=== PATIENT | male | born 1960 | race Caucasian/White ===

== ENCOUNTER → 2017-09-20 | Outpatient (CLI) | payer BC ==
[~2017-09-20] MED LIST: BENICAR 20MG TA20 MG PO; INDOCIN50 MG PO; ZYLOPRIM 300MG300 MG PO
== END ==
LOC: COL.RAD 06:34
DX: N20.0 Calculus of kidney (principal); K76.0 Fatty (change of) liver, not elsewhere classified
CPT/HCPCS: Q9967

== ENCOUNTER → 2017-11-22 | Outpatient (CLI) | payer BC | LOC: COL.RAD 08:17 | DX: C61 Malignant neoplasm of prostate (principal) | CPT/HCPCS: A9503 ==

== ENCOUNTER 2017-12-21 11:50 | Inpatient (IN) | payer BC, OTHER ==
[~2017-12-21] VITALS: Ht 177.8 cm; Wt 136.3 kg
[2017-12-28] VITALS (14 sets, daily range): BP systolic 91–153; BP diastolic 44–97; PULSE 71–90; TEMP 97.3–98.4
[2017-12-28 14:17] LABS: HEMATOCRIT 38.7 % (42.0-52.0); HEMOGLOBIN 12.4 g/dl (13.5-18.0)
[2017-12-29 03:50] VITALS: BP 112/62; PULSE 76; TEMP 98.6
[2017-12-29 07:02] LABS: BASO % 0.1 % (0.0-2.0); GRAN # 15.9 (1.4-6.5); HEMOGLOBIN 11.3 g/dl (13.5-18.0); LYMPH % 5.4 % (20.0-51.0); MEAN CELL VOLUME 84 fl (80.0-100.0); MEAN CORPUSCULAR HEMOGLOBIN 27 pg (27.0-31.0); MEAN CORPUSCULAR HGB CONC 32 g/dl (33.0-37.0); MONO # 0.8 (0.1-0.6); MONO % 4.7 % (1.7-9.3); PLATELET COUNT 251 K/mm3 (130-400); RED BLOOD COUNT 4.27 M/mm3 (4.20-5.60); REDCELL DISTRIBUTION WIDTH-CV 14.5 % (11.5-14.5)
[2017-12-29 07:10] LABS: HEMATOCRIT 35.7 % (42.0-52.0)
[2017-12-29 07:16] LABS: CALCIUM 8.6 mg/dL (8.4-10.2); CREATININE, serum 0.93 mg/dL (0.66-1.25); POTASSIUM 4.4 mmol/L (3.4-5.0)
[2017-12-29 07:36] VITALS: BP 97/54; PULSE 86; TEMP 98.3
[2017-12-29 11:48] VITALS: BP 124/71; PULSE 74; TEMP 98
[2017-12-29 16:17] VITALS: BP 100/58; PULSE 80; TEMP 98.2
[2017-12-29 20:08] VITALS: BP 102/64; PULSE 86; TEMP 98.2
[2017-12-29 23:38] VITALS: BP 97/49; PULSE 61; TEMP 98.3
[2017-12-30 04:38] VITALS: BP 97/57; PULSE 82; TEMP 98
[2017-12-30 07:39] VITALS: BP 135/68; PULSE 78; TEMP 98
[2017-12-30 11:35] VITALS: BP 121/73; PULSE 75; TEMP 98.5
== END 2017-12-30 15:45 | disposition home or self-care (01) | DRG 707 ==
LOC: INPTSU 12-28 05:32 → SURG 12-28 05:32
PROVIDERS: Urology
PROC: 0VT00ZZ Resection of Prostate, Open Approach (ICD-10-PCS; principal; 2017-12-28 07:30)
DX: C61 Malignant neoplasm of prostate (principal); Z68.41 Body mass index [BMI] 40.0-44.9, adult; E66.01 Morbid (severe) obesity due to excess calories; N20.0 Calculus of kidney; I10 Essential (primary) hypertension; R73.03 Prediabetes
CPT/HCPCS: A9284; J0690; J1100; J1940; J2250; J2270; J2405; J2704; J2710; J2795; J3010; J3480; J7120

== ENCOUNTER → 2017-12-27 | Outpatient (CLI) | payer BC | LOC: COL.LAB 07:41 | DX: Z01.812 Encounter for preprocedural laboratory examination (principal); C61 Malignant neoplasm of prostate ==

== ENCOUNTER 2018-04-17 10:00 | Emergency (ER) | payer BC ==
[~2018-04-17] VITALS: Ht 180.3 cm; Wt 127.7 kg
[2018-04-17 10:05] VITALS: TEMP 98.7
[2018-04-17 10:31] LABS: HEMATOCRIT 47.1 % (42.0-52.0); HEMOGLOBIN 15.2 g/dl (13.5-18.0); MEAN CELL VOLUME 80 fl (80.0-100.0); MEAN CORPUSCULAR HEMOGLOBIN 26 pg (27.0-31.0); MEAN CORPUSCULAR HGB CONC 32 g/dl (33.0-37.0); MEAN PLATELET VOLUME 9.7 fl (7.4-10.4); PLATELET COUNT 236 K/mm3 (130-400); REDCELL DISTRIBUTION WIDTH-CV 14.3 % (11.5-14.5)
[2018-04-17 10:53] LABS: ALBUMIN 4.1 gm/dL (3.5-5.0); BILIRUBIN,TOTAL 1.8 mg/dL (0.0-1.0); CALCIUM 9.1 mg/dL (8.4-10.2); CREATININE, serum 1.28 mg/dL (0.66-1.25); POTASSIUM 4.2 mmol/L (3.4-5.0)
[2018-04-17 11:02] LABS: BAND 5 % (0-10); BASOPHIL 1 % (0-2); LYMPHOCYTE 11 % (20.0-51.0); NEUTROPHILS 72 % (42.0-75.2)
[2018-04-17 11:03] LABS: PLATELET ESTIMATE NORMAL (NORMAL)
[2018-04-17 11:04] LABS: C-REACTIVE PROTEIN 22.7 mg/dL (0.0-0.9); MICROCYTOSIS 1+
[2018-04-17 11:41] LABS: COLLECTION METHOD CLEAN CATCH
[2018-04-17 11:57] LABS: MUCOUS Present /lpf; PH 5 (5-8); SQUAMOUS EPITHELIAL 0-2 /hpf; URINE APPEARANCE Clear; URINE BACTERIA None Seen /hpf; URINE BILIRUBIN Negative (NEGATIVE); URINE BLOOD 1+ (NEGATIVE); URINE COLOR Amber; URINE GLUCOSE Negative (NEGATIVE); URINE KETONE 1+ (NEGATIVE); URINE LEUKOCYTE ESTERASE Negative (NEGATIVE); URINE NITRATE Negative (NEGATIVE); URINE PROTEIN(semi-quant) 2+ (NEGATIVE); URINE UROBILINOGEN >=4.0 mg/dL (NEGATIVE)
[2018-04-17] MEDS ORDERED: OMNICEF 300MG300 MG PO (13:18)
[2018-04-17 13:25] VITALS: BP 139/78; PULSE 81
[2018-04-18] MEDS ORDERED: FLOMAX 0.40.4 MG/CAP PO (12:02)
[2018-04-18] MEDS ORDERED: COLACE 100100 MG/CAP PO (12:03)
[2018-04-18] MEDS ORDERED: PERCOCET 325 MG1 TA2 PO (12:04)
== END 2018-04-17 13:25 | disposition home or self-care (01) ==
LOC: COL.ER 10:00
PROVIDERS: Nurse Practitioner
DX: N20.0 Calculus of kidney (principal); I10 Essential (primary) hypertension; Z87.442 Personal history of urinary calculi; Z90.49 Acquired absence of other specified parts of digestive tract
CPT/HCPCS: J0696; J7030; Q9967

== ENCOUNTER 2018-04-18 10:52 | Day surgery (SDC) | payer BC ==
[2018-04-18] VITALS (11 sets, daily range): BP systolic 102–147; BP diastolic 60–84; PULSE 64–93; TEMP 97.6–98.4
[~2018-04-18] VITALS: Ht 180.3 cm; Wt 136.6 kg
[~2018-04-18 10:52] MED LIST changes: +OMNICEF 300MG300 MG PO
[2018-04-18] MEDS ORDERED: FLOMAX 0.40.4 MG/CAP PO (12:02)
[2018-04-18] MEDS ORDERED: COLACE 100100 MG/CAP PO (12:03)
[2018-04-18] MEDS ORDERED: PERCOCET 325 MG1 TA2 PO (12:04)
[2018-04-19 04:51] VITALS: BP 111/55; PULSE 63; TEMP 97.6
[2018-04-19 07:52] VITALS: BP 120/71; PULSE 62; TEMP 97.6
== END 2018-04-19 09:27 | disposition home or self-care (01) ==
LOC: SDCO 10:52 → SURG 17:00 → SDCO 04-19 09:27
DX: N20.1 Calculus of ureter (principal); I10 Essential (primary) hypertension; M19.90 Unspecified osteoarthritis, unspecified site; M10.9 Gout, unspecified; Z90.79 Acquired absence of other genital organ(s); Z90.49 Acquired absence of other specified parts of digestive tract; Z85.46 Personal history of malignant neoplasm of prostate; Z82.5 Family history of asthma and other chronic lower respiratory diseases; Z80.0 Family history of malignant neoplasm of digestive organs; Z83.3 Family history of diabetes mellitus; Z82.49 Family history of ischemic heart disease and other diseases of the circulatory system; Z82.3 Family history of stroke
CPT/HCPCS: OP; C1769; C2617; J0690; J1100; J1885; J2405; J2704; J3010; J7120; Q9967

== ENCOUNTER 2018-05-11 10:51 | Day surgery (SDC) | payer BC ==
[~2018-05-11] VITALS: Ht 180.3 cm; Wt 138.3 kg
[~2018-05-11 10:51] MED LIST changes: +COLACE 100100 MG/CAP PO; +FLOMAX 0.40.4 MG/CAP PO; +PERCOCET 325 MG1 TA2 PO
[2018-05-11 11:30] VITALS: BP 137/75; PULSE 81; TEMP 97.9
[2018-05-11 11:36] LABS: BASO % 0.4 % (0.0-2.0); EOS # 0.4 (0.0-0.7); EOS % 4.5 % (0-4.0); GRAN # 4.6 (1.4-6.5); GRAN % 56.8 % (42.2-75.2); HEMATOCRIT 44.5 % (42.0-52.0); HEMOGLOBIN 14.2 g/dl (13.5-18.0); LYMPH # 2.4 (1.2-3.4); LYMPH % 29.5 % (20.0-51.0); MEAN CELL VOLUME 81 fl (80.0-100.0); MEAN CORPUSCULAR HEMOGLOBIN 26 pg (27.0-31.0); MEAN CORPUSCULAR HGB CONC 32 g/dl (33.0-37.0); MEAN PLATELET VOLUME 9.6 fl (7.4-10.4); MONO # 0.7 (0.1-0.6); MONO % 8.3 % (1.7-9.3); PLATELET COUNT 250 K/mm3 (130-400); RED BLOOD COUNT 5.47 M/mm3 (4.20-5.60); REDCELL DISTRIBUTION WIDTH-CV 15.3 % (11.5-14.5)
[2018-05-11] MEDS ORDERED: CIPRO 500MG TA500 MG PO (11:36)
[2018-05-11 14:20] VITALS: BP 93/63; PULSE 78; TEMP 97.9
[2018-05-11 14:35] VITALS: BP 90/57; PULSE 77
[2018-05-11 14:50] VITALS: BP 96/61; PULSE 80
[2018-05-11 15:00] VITALS: BP 112/73; PULSE 80
== END 2018-05-11 15:47 | disposition home or self-care (01) ==
LOC: SDCO 10:51
PROVIDERS: Urology
DX: N20.0 Calculus of kidney (principal); I10 Essential (primary) hypertension; M19.90 Unspecified osteoarthritis, unspecified site; M10.9 Gout, unspecified; Z90.49 Acquired absence of other specified parts of digestive tract; Z90.79 Acquired absence of other genital organ(s); Z85.46 Personal history of malignant neoplasm of prostate; Z82.5 Family history of asthma and other chronic lower respiratory diseases; Z83.3 Family history of diabetes mellitus; Z80.0 Family history of malignant neoplasm of digestive organs; Z82.49 Family history of ischemic heart disease and other diseases of the circulatory system; Z82.3 Family history of stroke
CPT/HCPCS: C1769; J0690; J1100; J1885; J2405; J2704; J3010; J7120

== ENCOUNTER 2018-09-23 13:38 | Emergency (ER) | payer BC ==
[~2018-09-23] VITALS: Ht 180.3 cm; Wt 140.9 kg
[~2018-09-23 13:38] MED LIST changes: +CIPRO 500MG TA500 MG PO
[2018-09-23 13:46] VITALS: BP 166/86; TEMP 98.9
[2018-09-23] MEDS ORDERED: ZYLOPRIM 300MG300 MG PO (14:02)
[2018-09-23] MEDS ORDERED: INDOCIN50 MG PO (14:12)
[2018-09-23] MEDS ORDERED: NORCO 325 MG-51 TAB PO (14:12)
[2018-09-23 14:21] VITALS: PULSE 96
== END 2018-09-23 14:10 | disposition home or self-care (01) ==
LOC: COL.ER 13:38
DX: M10.9 Gout, unspecified (principal); I10 Essential (primary) hypertension; Z90.49 Acquired absence of other specified parts of digestive tract

== ENCOUNTER 2021-01-20 08:39 | Day surgery (SDC) | payer BC ==
[~2021-01-20] VITALS: Ht 180.3 cm; Wt 149.1 kg
[~2021-01-20 08:39] MED LIST changes: +NORCO 325 MG-51 TAB PO
[2021-01-20] MEDS ORDERED: UROCIT-K 1010 MEQ PO (09:28)
[2021-01-20] MEDS ORDERED: GLUCOPHAGE500 MG/TAB PO (09:28)
[2021-01-20] MEDS ORDERED: MAG-OX 400400 MG/TAB PO (09:28)
[2021-01-20] MEDS ORDERED: BENICAR 20MG TA20 MG PO (09:28)
[2021-01-20 09:29] VITALS: BP 140/86; PULSE 88; TEMP 98.4
[2021-01-20] MEDS ORDERED: LIPITOR 10MG10 MG PO (09:29)
[2021-01-20 10:40] VITALS: BP 110/67; PULSE 84; TEMP 98
[2021-01-20 10:55] VITALS: BP 110/62; PULSE 81
[2021-01-20 11:10] VITALS: BP 110/64; PULSE 81
--- NOTE | 2021-01-20 11:48 | NUR ---
1040 PATIENT ARRIVES TO [facility] VIA CART. PATIENT AMBULATES TO CHAIR WITH SBA. VSS. PATIENT'S AT CHAIRSIDE. 1046 DR. MORELOS IN TO SPEAK WITH PATIENT AND PATIENT'S . PATIENT REQUESTED SPRITE AND A BLUEBERRY MUFFIN FOR A SNACK. 1055 PATIENT [id number] PO WELL. VSS. 1110 IV DC'D. CATH INTACT. TOLERATED WELL. D/C INSTRUCTIONS VERBAL AND WRITTEN GIVEN TO PATIENT AND PATIENT'S . QUESTIONS INVITED AND ANSWERED. BOTH VERBALIZED UNDERSTANDING. 1121 PATIENT D/C'D TO POV VIA W/C WITH . PPATIENT WITH PERSONAL BELONGINGS AND D/C INSTRUCTIONS.
== END 2021-01-20 11:21 | disposition home or self-care (01) ==
LOC: SDCO 08:39
DX: Z12.11 Encounter for screening for malignant neoplasm of colon (principal); D12.3 Benign neoplasm of transverse colon; K62.1 Rectal polyp; I10 Essential (primary) hypertension; M19.90 Unspecified osteoarthritis, unspecified site; R73.03 Prediabetes; M10.9 Gout, unspecified; Z20.822 Contact with and (suspected) exposure to COVID-19; Z85.038 Personal history of other malignant neoplasm of large intestine; Z86.010 Personal history of colon polyps; Z79.899 Other long term (current) drug therapy; Z85.46 Personal history of malignant neoplasm of prostate; Z90.49 Acquired absence of other specified parts of digestive tract; Z79.84 Long term (current) use of oral hypoglycemic drugs; Z90.79 Acquired absence of other genital organ(s); Z80.0 Family history of malignant neoplasm of digestive organs; Z83.71 Family history of colonic polyps
CPT/HCPCS: J2704; J7030

== ENCOUNTER 2023-03-27 06:36 | Day surgery (SDC) | payer BC ==
[~2023-03-27 06:36] MED LIST changes: +GLUCOPHAGE500 MG/TAB PO; +LIPITOR 10MG10 MG PO; +MAG-OX 400400 MG/TAB PO; +UROCIT-K 1010 MEQ PO
[2023-03-27 09:53] VITALS: BP 104/68; PULSE 81; TEMP 97.4
[2023-03-27] MEDS ORDERED: ASPIRIN 81M81 MG/TA2 PO (09:53)
--- NOTE | 2023-03-27 09:53 | NUR ---
PATIENT RETURNED TO ROOM 5 VIA CART, ALERT AND ORIENTED X3. HANDOFF COMPLETED IN ROOM BY OR NURSE BJORN MURGUIA AND EDWIN FIELDS. SEE CHART FOR VITAL SIGNS. PATIENT BREATHING REGULAR AND UNLABORED ON 6L VIA FACEMASK. LUNG SOUNDS CLEAR BILATERAL, DIMINISHED TOWARD BASES. SKIN WARM AND DRY. HEART TONES REGULAR. BILATERAL RADIAL PULSES 3+. INCISION PRESENT TO LEFT SIDE OF CHEST WITH SKIN GLUE CLOSURE. SITE IS CLEAN AND DRY WITH GLUE INTACT. PATIENT ABDOMEN SOFT AND ROUNDED. PATIENT DENIES PAIN, NAUSEA AND SHORTNESS OF BREATH. PATIENT SPOUSE, MEJIA, PRESENT IN ROOM.
[2023-03-27] MEDS ORDERED: LASIX 40MG TABL40 MG PO (10:00)
[2023-03-27] MEDS ORDERED: TOPROL XL 25MG25 MG PO (10:00)
[2023-03-27] MEDS ORDERED: LIPITOR 40MG TA40 MG PO (10:01)
[2023-03-27] MEDS ORDERED: PRINIVIL2.5 MG PO (10:02)
[2023-03-27] MEDS ORDERED: OZEMPIC1 MG/0.71 SQ (10:03)
[2023-03-27 10:05] VITALS: BP 108/70; PULSE 78
--- NOTE | 2023-03-27 10:05 | NUR ---
PATIENT HAD APPLE JUICE AND A MUFFIN. BOTH FOOD AND DRINK TOLERATED WELL. CALL LIGHT IN REACH.
[2023-03-27] MEDS ORDERED: NORCO 325 MG-51 TAB PO (10:09)
[2023-03-27] MEDS ORDERED: MOTRIN 600600 MG/TAB PO (10:09)
[2023-03-27 10:15] VITALS: BP 108/68; PULSE 80
[2023-03-27 10:39] VITALS: BP 114/68; PULSE 74
[2023-03-27 10:47] VITALS: BP 121/71; PULSE 79
[2023-03-27 10:50] VITALS: BP 120/66; PULSE 79
--- NOTE | 2023-03-27 11:05 | NUR ---
PATIENT DENIES PAIN AND NAUSEA. SURGICAL INCISION CLEAN AND DRY WITH GLUE INTACT. TOLERATING FOOD AND DRINK. 1055: DISCHARGE EDUCATION COMPLETED WITH PRINTED EDUCATION AND INSTRUCTIONS SENT HOME WITH PATIENT. FOLLOW UP APPOINTMENT DATE, TIME AND LOCATION COMMUNICATED TO PATIENT. PATIENT AND SPOUSE VERBALIZED UNDERSTANDING. IV REMOVED. GAUZE AND COBAN PLACED OVER SITE. PATIENT DISCHARGED HOME WITH SPOUSE, MEJIA, TRANSPORT.
== END 2023-03-27 11:05 | disposition home or self-care (01) ==
LOC: SDCO 06:36
DX: D17.1 Benign lipomatous neoplasm of skin and subcutaneous tissue of trunk (principal)
CPT/HCPCS: J2704; J3010; J7120

== ENCOUNTER 2024-01-26 08:50 | Emergency (ER) | payer BC ==
[~2024-01-26] VITALS: Ht 177.8 cm; Wt 118.2 kg
[~2024-01-26 08:50] MED LIST changes: +ASPIRIN 81M81 MG/TA2 PO; +LASIX 40MG TABL40 MG PO; +LIPITOR 40MG TA40 MG PO; +MOTRIN 600600 MG/TAB PO; +OZEMPIC1 MG/0.71 SQ; +PRINIVIL2.5 MG PO; +TOPROL XL 25MG25 MG PO
[2024-01-26 08:53] VITALS: BP 128/78; TEMP 97.8
[2024-01-26 11:20] VITALS: PULSE 84
== END 2024-01-26 11:20 | disposition home or self-care (01) ==
LOC: COL.ER 08:50
DX: S80.01XA Contusion of right knee, initial encounter (principal); S59.901A Unspecified injury of right elbow, initial encounter; Z23 Encounter for immunization; W11.XXXA Fall on and from ladder, initial encounter; Y92.89 Other specified places as the place of occurrence of the external cause; Y99.0 Civilian activity done for income or pay